=== PATIENT | female | born 1970 | race Caucasian/White ===

== ENCOUNTER → 2016-08-17 | Outpatient (CLI) | payer OTHER ==
[~2016-08-17] MED LIST: CARB1CAP8 PO; DICL50TA3 PO; DOCU-94 PO; GABA-113 PO; METH500T37 PO; MULT-506 PO; NAPR-1169 PO; NAPR500T3 PO; NORT25CA PO; OXYC-609 PO; POLY335019 PO; PROM25TA9 PO; RIZA10TA18 PO
--- NOTE | 2016-08-20 14:25 | MAMMOGRAPHY REPORT ---
BILATERAL DIGITAL SCREENING MAMMOGRAM TOMOSYNTHESIS WITH CAD: 08/17/2016 CLINICAL HISTORY: Routine screening. Patient has no complaints. TECHNIQUE: Breast tomosynthesis in addition to standard 2D mammography was performed. Current study was also evaluated with a Computer Aided Detection (CAD) system. COMPARISON: Comparison is made to exam dated: 08/10/2015 mammogram - [facility]. BREAST COMPOSITION: There are scattered areas of fibroglandular density in both breasts. FINDINGS: No suspicious masses, calcifications, or areas of architectural distortion are noted in e ither breast. There has been no significant interval change compared to prior exams. IMPRESSION: ACR BI-RADS CATEGORY 1: NEGATIVE There is no mammographic evidence of malignancy. A 1 year screening mammogram is recommended. The p atient will receive written notification of the results. Approximately 10% of breast cancers are not detected with mammography. A negative mammographic repor t should not delay biopsy if a clinically suggestive mass is present. Sparkle Monique M.D. ah/:08/17/2016 15:53:32 Straw Hat Brusher: Malena JAMISON(Shannon)(M), [facility] letter sent: Normal 1/2 BI-RADS Code: ACR BI-RADS Category 1: Negative
== END | disposition home or self-care (01) ==
LOC: C.MAMM 15:29
PROVIDERS: ATTEND Internal Medicine
DX: Z12.31 Encounter for screening mammogram for malignant neoplasm of breast (principal)

== ENCOUNTER → 2016-08-29 | Outpatient (CLI) | payer OTHER ==
--- NOTE | 2016-08-29 12:33 | DIAGNOSTIC IMAGING REPORT ---
LEFT HIP 2 VIEWS HISTORY: Left hip pain. COMPARISON: None. FINDINGS: No acute fracture or dislocation within the left hip. Mild soft tissue swelling along the lateral aspect of the left hip. Deformity within the left iliac wing is likely due to an old injury. No radiopaque foreign bodies. Cartilage spaces are maintained for age. IMPRESSION: No acute fracture or dislocation within the left hip. Mild lateral soft tissue swelling. Electronically signed by: Valentin Archibald M.D. 08/29/2016 12:32 PM Dictated Date/Time: 08/29/2016 12:31 PM
--- NOTE | 2016-08-29 12:43 | DIAGNOSTIC IMAGING REPORT ---
CERVICAL SPINE 3 VIEWS HISTORY: Right-sided neck pain. COMPARISON: None. FINDINGS: The cervical spine is visualized from C1 through the superior endplate of T1. There is no fracture. No subluxation. Anterior cervical discectomy and fusion from C5 through C7. The hardware appears intact. The vertebral bodies are fused. Mild disc space narrowing at C4-C5 and C7-T1. Straightening of the cervical spine. Prevertebral soft tissues and the atlantodens interval are intact. IMPRESSION: No fracture or subluxation within the cervical spine. Postoperative changes. Mild degenerative disc disease at C4-C5 and C7-T1. Electronically signed by: Valentin Archibald M.D. 08/29/2016 12:41 PM Dictated Date/Time: 08/29/2016 12:39 PM
== END | disposition home or self-care (01) ==
LOC: C.RAD 12:04
PROVIDERS: ATTEND Nurse Practitioner
DX: M43.6 Torticollis (principal); M25.552 Pain in left hip; M50.321 Other cervical disc degeneration at C4-C5 level; M50.33 Other cervical disc degeneration, cervicothoracic region

== ENCOUNTER 2016-11-11 11:57 | Emergency (ER) | payer OTHER ==
[~2016-11-11] VITALS: Ht 170.2 cm; Wt 75.1 kg
[~2016-11-11 11:57] MED LIST changes: -CARB1CAP8 PO; -DICL50TA3 PO; -GABA-113 PO; -METH500T37 PO; -NAPR500T3 PO; -OXYC-609 PO
[2016-11-11 11:59] VITALS: TEMP 36.8; Ht 170.2 cm; Wt 75.1 kg
[2016-11-11] MEDS ORDERED: KETOROLAC TROMETHAMINE 60 MG/2 ML VIAL IM STA (12:30)
[2016-11-11] MEDS ORDERED: SODIUM CHLORIDE 0.9% 1000ML 1,000 ML IV STA (12:42)
[2016-11-11] MEDS ORDERED: METOCLOPRAMIDE HCL INJ 5 MG/ML 2 ML VIAL IV STA (12:42)
--- NOTE | 2016-11-11 13:13 | DIAGNOSTIC IMAGING REPORT ---
HEAD WITHOUT CONTRAST (CT) CT DOSE: 537.48 mGy.cm HISTORY: Headache left side facial pain/headache TECHNIQUE: Multiaxial CT images of the head were performed without the use of intravenous contrast. A dose lowering technique was utilized adhering to the principles of ALARA. Comparison: 08/11/2015 Findings: The paranasal sinuses and mastoid air cells are clear. The calvarium and skull base are intact. The ventricles and sulci are within normal limits. There is no mass, hematoma, midline shift, or acute infarct. Impression: No acute intracranial abnormality. The above report was generated using voice recognition software. It may contain grammatical, syntax or spelling errors. Electronically signed by: Alex Murguia M.D. 11/11/2016 1:11 PM Dictated Date/Time: 11/11/2016 1:10 PM
--- NOTE | 2016-11-11 13:35 | EMERGENCY ROOM VISIT NOTE ---
ED Visit Note First contact with patient: 12:07 CHIEF COMPLAINT: Facial Pain/Headache HISTORY OF PRESENT ILLNESS: This 46-year-old female patient presented to the emergency department complaining of several month-long history of intermittent facial and head pain on the left side. The patient states pains have been lasting for a few minutes to a few hours multiple days during the week, with a few days off. Today, however, the patient states the pain significantly worsened. The patient did see her PCP last week and was started on a 5 day burst of prednisone to treat for possible migraine. The patient states the steroids did not help with her symptoms, and she awoke today experiencing even worsening pain. The patient describes a sensation like her eye and cheek are swollen, and reports pain radiating from behind the ear to the front of her ear. The patient describes the pain as swelling and burning. The patient rates the pain 9/10. The patient reports neck surgery approximately one year ago, where the patient had a cervical disc recreated with a piece of the pelvic bone. There has been no associated photophobia, phonophobia, nausea and vomiting. The patient denies fever or chills recently, and there is no weakness or numbness of the extremities. There is no difficulty with speech or vision. No trauma to the head and no neck pain. The pain is severe, constant, and it is slowly increasing in severity. The patient has taken Tylenol every 2-3. This is not the same as migraines patient has had in the past. She was seen here last year where an LP and brain MRI were performed with no abnormal findings. Previous imaging studies of the brain have been normal. REVIEW OF SYSTEMS: A 10-system review of systems was performed with positives and pertinent negatives listed in the history of present illness. All other systems were reviewed and are negative. ALLERGIES: Amoxicillin, penicillin MEDICATIONS: None PMH: Migraines, cervical disc disease SOCIAL HISTORY: She lives locally with her family. She denies drug, alcohol, tobacco use. PHYSICAL EXAM: Vital Signs: Reviewed Nurse's notes, vital signs stable. GENERAL : This is a 46-year-old female, who appears in pain, but non toxic in appearance and in no acute distress. MENTAL STATUS: Alert, oriented, and coherent. HEENT: Normocephalic. PERRLA. EOMI. Nares patent without nuchal rigidity. Tympanic membranes pearly cedeno without erythema or effusion bilaterally. Mucous membranes moist. NECK: Supple, no nuchal rigidity, nontender, no lymphadenopathy. HEART: Regular rhythm and normal rate without murmurs, ectopy, gallops, or rubs. LUNGS: Clear to auscultation bilaterally without wheezes, rales or rhonchi. No dullness to percussion. No accessory muscle use. No retractions. SKIN: The patient is tender to light palpation over the left side of the face. She does have full sensation to sharp and dull touch. No rashes, erythema, or edema noted. NEUROLOGICAL: Pupils are round, equal and react to light. The optic fundi are normal and the discs are flat. The patient moves all extremities well and the gait is normal. EMERGENCY DEPARTMENT COURSE: The patient was seen and evaluated as above. I did give the patient 60 mg Toradol IM, which she does state significantly helped with her pain. I discussed the case with Dr. Brown who recommends a head CT scan without contrast and treatment as a migraine with Reglan and fluids. I did order this test and started this treatment in the ED. The patient did report significant improvement in her symptoms prior to discharge. I discussed findings with the patient and her daughter at bedside, and they were in agreement with the assessment and plan. I did encourage close follow- up with neurology and orthopedic surgeon. I offered narcotic pain medication to the patient, and she declines. The patient was discharged home in good condition. DIFFERENTIAL DIAGNOSIS: Trigeminal neuralgia, cervical disc disease, acute intracranial bleed, meningitis, encephalitis, mass or mass effect, sinusitis, infection, tumor, headache, temporal arteritis and carbon monoxide exposure, and migraine. DIAGNOSIS: Facial Pain, Headache DISCHARGE INSTRUCTIONS & TREATMENT: DO NOT drive, drink alcohol, operate machinery, or perform dangerous activities today. Rest today in a quiet, peaceful, dark environment and get a full 8-10 hrs of sleep tonight. Avoid loud noises, smoke/smoking, alcohol, bright lights, stress, or physical exertion today to minimize the chance the headache may return. Continue current medications as prescribed. You may take Naproxen 500mg twice daily for pain and anti-inflammatory effects. Take this as prescribed. Do not take this medication with any other NSAIDs including Aleve, Advil, Motrin, ibuprofen. Acetaminophen(Tylenol) may be used for fever or pain. Use 1000mg every six to eight hours as needed. Avoid using more than 3000mg in a 24 hour period. You may consider Magnesium supplement, 400mg daily at bedtime, to help with headaches. Drink plenty of fluids. Avoid high sodium foods. Avoid processed foods. Return to the ER for passing out, worsening headache, vision problems, weakness , slurred speech, facial drooping, neck stiffness/pain, fevers, vomiting, worsening of your condition, or as needed. Follow up with your primary physician in 2-3 days for a recheck of your current condition. Please contact neurology in 1-2 days for further evaluation of your symptoms and consider follow-up with your orthopedic surgeon this week as well. Problem List Medical Problems: (1) Anxiety Status: Chronic (2) Back pain, acute Status: Resolved (3) Back pain, chronic Status: Chronic (4) Depression Status: Chronic (5) Esophageal Reflux Status: Chronic (6) Polycystic Ovaries Status: Chronic (7) Pyelonephritis Status: Resolved Surgical Problems: (1) History of hysterectomy Status: Resolved (2) Tubal Ligation Status Status: Resolved Current/Historical Medications Scheduled Naproxen (Naproxen), 1 TAB PO BID Allergies Coded Allergies: Amoxicillin (Verified Allergy, Unknown, ., 11/11/16) Penicillins (Verified Allergy, Unknown, 11/11/16) Vital Signs Date Time Temp Pulse Resp B/P (MAP) Pulse Ox O2 Delivery O2 Flow Rate FiO2 11/11/16 14:22 58 18 100/68 99 11/11/16 13:24 58 20 106/67 99 Room Air 11/11/16 11:59 36.8 82 20 122/83 96 Room Air Medications Administered Medications (Trade) Dose Ordered Sig/Connie Route Start Time Stop Time Status Last Admin Dose Admin Ketorolac Tromethamine (Toradol Inj) 60 mg NOW STAT IM 11/11/16 12:30 11/11/16 12:31 DC 11/11/16 12:37 60 MG Metoclopramide HCl (Reglan Inj) 10 mg NOW STAT IV 11/11/16 12:42 11/11/16 12:45 DC 11/11/16 13:22 10 MG Sodium Chloride 1,000 ml @ 999 mls/hr Q1H1M STAT IV 11/11/16 12:42 11/11/16 13:42 DC 11/11/16 13:23 999 MLS/HR Departure Information Impression Primary Impression: Facial pain Additional Impression: Headache Dispostion Home / Self-Care Condition GOOD Prescriptions Naproxen (NAPROXEN) 500 Mg Tab 1 TAB PO BID, #60 TAB 1 Refill Prov: Tiffany Oliva PA-C 11/11/16 Referrals Christiano Barker M.D. (PCP) Gray Cohen M.D. Patient Instructions Headache Pain, My [facility] Additional Instructions DO NOT drive, drink alcohol, operate machinery, or perform dangerous activities today. Rest today in a quiet, peaceful, dark environment and get a full 8-10 hrs of sleep tonight. Avoid loud noises, smoke/smoking, alcohol, bright lights, stress, or physical exertion today to minimize the chance the headache may return. Continue current medications as prescribed. You may take Naproxen 500mg twice daily for pain and anti-inflammatory effects. Take this as prescribed. Do not take this medication with any other NSAIDs including Aleve, Advil, Motrin, ibuprofen. Acetaminophen(Tylenol) may be used for fever or pain. Use 1000mg every six to eight hours as needed. Avoid using more than 3000mg in a 24 hour period. You may consider Magnesium supplement, 400mg daily at bedtime, to help with headaches. Drink plenty of fluids. Avoid high sodium foods. Avoid processed foods. Return to the ER for passing out, worsening headache, vision problems, weakness , slurred speech, facial drooping, neck stiffness/pain, fevers, vomiting, worsening of your condition, or as needed. Follow up with your primary physician in 2-3 days for a recheck of your current condition. Please contact neurology in 1-2 days for further evaluation of your symptoms and consider follow-up with your orthopedic surgeon this week as well. Problem Qualifiers Additional Impression: Headache Headache type: unspecified Headache chronicity pattern: acute headache Intractability: intractable Qualified Codes: R51 - Headache
[2016-11-11] MEDS ORDERED: NAPR500T3 PO (14:11)
[2016-11-11 14:22] VITALS: BP 100/68; PULSE 58; O2SAT 99
== END 2016-11-11 14:23 | disposition home or self-care (01) ==
LOC: C.EDB 11:58 → C.EDD 14:23
DX: R51 Headache (principal); F41.9 Anxiety disorder, unspecified; K21.9 Gastro-esophageal reflux disease without esophagitis; F32.9 Major depressive disorder, single episode, unspecified; E28.2 Polycystic ovarian syndrome; Z87.440 Personal history of urinary (tract) infections; Z98.51 Tubal ligation status; Z88.0 Allergy status to penicillin; Z88.1 Allergy status to other antibiotic agents

== ENCOUNTER 2017-02-03 08:50 | Emergency (ER) | payer BC, OTHER ==
[~2017-02-03] VITALS: Ht 170.2 cm; Wt 77.2 kg
[~2017-02-03 08:50] MED LIST changes: -DOCU-94 PO; -MULT-506 PO; -NAPR-1169 PO; +NAPR500T3 PO; -NORT25CA PO; -POLY335019 PO; -PROM25TA9 PO; -RIZA10TA18 PO
[2017-02-03 09:03] VITALS: TEMP 36.8; Ht 170.2 cm; Wt 77.2 kg
[2017-02-03] MEDS ORDERED: SODIUM CHLORIDE 0.9% 1000ML 1,000 ML IV STA (09:35)
[2017-02-03] MEDS ORDERED: KETOROLAC TROMETHAMINE 30 MG/ML VIAL IV STA (09:49)
[2017-02-03] MEDS ORDERED: DiphenhydrAMINE HCL 50 MG/ML VIAL IV STA (09:49)
[2017-02-03] MEDS ORDERED: METOCLOPRAMIDE HCL INJ 5 MG/ML 2 ML VIAL IV STA (09:49)
[2017-02-03] MEDS ORDERED: METH500T37 PO (09:57)
[2017-02-03] MEDS ORDERED: CARB1CAP8 PO (09:57)
[2017-02-03] MEDS ORDERED: GABA-113 PO (09:57)
[2017-02-03] MEDS ORDERED: DICL50TA3 PO (09:57)
[2017-02-03] MEDS ORDERED: OXYC-609 PO (09:57)
[2017-02-03] MEDS ORDERED: DEXAMETHASONE SOD INJ 10 MG/ML VIAL IV ONE (10:00)
[2017-02-03 10:04] LABS: BASO % 0.2 %; BASO ABS # 0.01 K/uL (0-0.2); COMPLETE YES; EOS % 1.8 %; HEMATOCRIT 41.9 % (37-47); IG% 0.5 %; LYMPH % 33.6 %; LYMPH ABS # 1.47 K/uL (1.2-3.4); MEAN CELL VOLUME 92.1 fL (80-100); MEAN CORPUSCULAR HEMOGLOBIN 31.2 pg (25-34); MEAN CORPUSCULAR HGB CONC 33.9 g/dl (32-36); MEAN PLATELET VOLUME 9.9 fL (7.4-10.4); NEUT % 55.9 %; PLATELET COUNT 172 K/uL (130-400); RED BLOOD COUNT 4.55 M/uL (4.2-5.4); WHITE BLOOD COUNT 4.37 K/uL (4.8-10.8)
[2017-02-03 10:25] LABS: BUN/CREATININE RATIO 20.5 (10-20); CALCIUM 8.8 mg/dl (8.5-10.1); CREATININE 0.63 mg/dl (0.60-1.20); POTASSIUM 3.9 mmol/L (3.5-5.1); PREG INTERNAL NEGATIVE QC NEG CLEAR BACKGROUND; PREG INTERNAL POSITIVE QC POS CONTROL LINE
[2017-02-03 11:36] VITALS: BP 110/63; PULSE 69; O2SAT 97
--- NOTE | 2017-02-03 17:03 | EMERGENCY ROOM VISIT NOTE ---
History Report prepared by Angus: Nomi Aguilera Under the Supervision of: Dr. Refugio Henry M.D. First contact with patient: 09:35 Chief Complaint: HEADACHE Stated Complaint: L FACIAL SWELLING, PAIN ON L SIDE OF FACE/HEAD/BOD History of Present Illness The patient is a 46 year old female who presents to the Emergency Room with complaints of a headache episode that started yesterday. She says that she gets these episodes at least once a week and they can last multiple days. She notes that she has had problems for about a year, right before getting surgery done for her neck. The patient states that her problems have included migraines, facial swelling, and left-sided facial pain and left-sided neck pain. She adds that parts of the left side of her head and face are tingling and numb. The patient notes that during her episodes, loud noises and bright lights worsen her symptoms. She says that today, her left side of her face is throbbing a lot , and she has a very bad headache. The patient notes that she is nauseated and vomited at work this morning, and that is why she decided to come in today. The patient states that she was last here a few months ago for her symptoms, and got some Toradol shots which made her feel better. She adds that her doctor has prescribed her some medications, including Soma, Carbamazepine, Neurontin, and Gabapentin. Pt denies LOC, fevers, chills, diaphoresis, chest pain, breathing difficulties, abdominal pain, back pain, melena, hematochezia, urinary symptoms , rash, or other complaints. Source of History: patient Onset: Yesterday Position: head Quality: other (migraine-like) Timing: other (episode) Modifying Factors (Worsening): other (light, loud noises) Associated Symptoms: + neck pain, + nausea, + vomiting, + numbness (left side of face and head) Note: Associated symptoms: Facial swelling, left facial throbbing. Left side of face and head tingling. Review of Systems See HPI for pertinent positives and negatives. A total of ten systems were reviewed and were otherwise negative. Past Medical & Surgical Medical Problems: (1) Anxiety (2) Back pain, acute (3) Back pain, chronic (4) Cervical disc disease (5) Depression (6) Esophageal Reflux (7) Polycystic Ovaries (8) Pyelonephritis Surgical Problems: (1) History of hysterectomy (2) Tubal Ligation Status Family History Cancer Diabetes mellitus Gallbladder disease Heart disease Hypertension Kidney disease Kidney stones Seizures Social History Smoking Status: Current Every Day Smoker Alcohol Use: occasionally Drug Use: none Marital Status: Occupation Status: employed Current/Historical Medications Scheduled Carbamazepine (Carbatrol Er), 200 MG PO DAILY Oxycodone HCl (Oxycodone HCl), 1 TAB PO UD Scheduled PRN Diclofenac (Voltaren), 50 MG PO Q8 PRN for Pain Gabapentin (Neurontin), 300 MG PO TID PRN for Pain Methocarbamol (Robaxin), 500-1,000 MG PO UD PRN for Headache Allergies Coded Allergies: Amoxicillin (Verified Allergy, Unknown, ., 02/03/17) Penicillins (Verified Allergy, Unknown, 02/03/17) Physical Exam Vital Signs Date Time Temp Pulse Resp B/P (MAP) Pulse Ox O2 Delivery O2 Flow Rate FiO2 02/03/17 11:36 69 16 110/63 97 02/03/17 10:53 59 16 96/54 98 Room Air 02/03/17 09:03 36.8 80 20 128/76 100 Room Air Physical Exam GENERAL: Awake, alert, uncomfortable appearing, no distress HENT: Normocephalic, atraumatic. TM's normal. Oropharynx unremarkable. EYES: PERRL. EOMI. Normal conjunctiva. Sclera non-icteric. NECK: Supple. No nuchal rigidity. FROM. No JVD or bruit. RESPIRATORY: CTA CARDIAC: RRR. No murmur. ABDOMEN: Soft, non distended. No tenderness to palpation. No rebound or guarding. No masses. RECTAL: Deferred. MUSCULOSKELETAL: Unremarkable. No edema. No discoloration. Gross motor strength symmetric. NEURO: Cranial nerves 2-12 grossly intact. Normal sensorium. Mild subjective decreased sensation left forehead. Speech normal. No pronator drift. Gait normal. SKIN: No rash or jaundice noted. LYMPH: No adenopathy. Medical Decision & Procedures Laboratory Results 02/03/17 09:44 Red Blood Count 4.55, Mean Corpuscular Volume 92.1, Mean Corpuscular Hemoglobin 31.2, Mean Corpuscular Hemoglobin Concent 33.9, Mean Platelet Volume 9.9, Neutrophils (%) (Auto) 55.9, Lymphocytes (%) (Auto) 33.6, Monocytes (%) (Auto) 8.0, Eosinophils (%) (Auto) 1.8, Basophils (%) (Auto) 0.2, Neutrophils # (Auto) 2.44, Lymphocytes # (Auto) 1.47, Monocytes # (Auto) 0.35, Eosinophils # (Auto) 0.08, Basophils # (Auto) 0.01 02/03/17 09:44 Test 02/03/17 09:44 White Blood Count 4.37 K/uL (4.8-10.8) Red Blood Count 4.55 M/uL (4.2-5.4) Hemoglobin 14.2 g/dL (12.0-16.0) Hematocrit 41.9 % (37-47) Mean Corpuscular Volume 92.1 fL (80-100) Mean Corpuscular Hemoglobin 31.2 pg (25-34) Mean Corpuscular Hemoglobin Concent 33.9 g/dl (32-36) Platelet Count 172 K/uL (130-400) Mean Platelet Volume 9.9 fL (7.4-10.4) Neutrophils (%) (Auto) 55.9 % Lymphocytes (%) (Auto) 33.6 % Monocytes (%) (Auto) 8.0 % Eosinophils (%) (Auto) 1.8 % Basophils (%) (Auto) 0.2 % Neutrophils # (Auto) 2.44 K/uL (1.4-6.5) Lymphocytes # (Auto) 1.47 K/uL (1.2-3.4) Monocytes # (Auto) 0.35 K/uL (0.11-0.59) Eosinophils # (Auto) 0.08 K/uL (0-0.5) Basophils # (Auto) 0.01 K/uL (0-0.2) RDW Standard Deviation 42.9 fL (36.4-46.3) RDW Coefficient of Variation 12.7 % (11.5-14.5) Immature Granulocyte % (Auto) 0.5 % Immature Granulocyte # (Auto) 0.02 K/uL (0.00-0.02) Anion Gap 5.0 mmol/L (3-11) Est Creatinine Clear Calc Drug Dose 120.8 ml/min Estimated GFR () 125.6 Estimated GFR (Non- 108.3 BUN/Creatinine Ratio 20.5 (10-20) Calcium Level 8.8 mg/dl (8.5-10.1) Human Chorionic Gonadotropin, Qual NEG (NEG) Laboratory results reviewed by me Medications Administered Medications (Trade) Dose Ordered Sig/Connie Route Start Time Stop Time Status Last Admin Dose Admin Sodium Chloride 1,000 ml @ 999 mls/hr Q1H1M STAT IV 02/03/17 09:35 02/03/17 10:35 DC 02/03/17 09:48 999 MLS/HR Metoclopramide HCl (Reglan Inj) 10 mg NOW STAT IV 02/03/17 09:49 02/03/17 09:51 DC 02/03/17 10:05 10 MG Diphenhydramine HCl (Benadryl Inj) 25 mg NOW STAT IV 02/03/17 09:49 02/03/17 09:51 DC 02/03/17 10:04 25 MG Ketorolac Tromethamine (Toradol Inj) 10 mg NOW STAT IV 02/03/17 09:49 02/03/17 09:51 DC 02/03/17 10:03 10 MG Dexamethasone Sodium Phosphate (Decadron Inj) 10 mg NOW ONCE IV 02/03/17 10:00 02/03/17 10:01 DC 02/03/17 10:00 10 MG ED Course 0935: Ordered NSS 1000 ml @ 999 mls/hr IV. 0947: The patient was evaluated in room B9. A complete history and physical exam was performed. 0949: Ordered Toradol Inj 10 mg IV, Benadryl Inj 25 mg IV, Reglan Inj 10 mg IV. 1000: Ordered Decadron Inj 10 mg IV. 1123: I reevaluated the patient and she is feeling better and well enough to go home. Discussed results and discharge instructions: she verbalized understanding and agreement. The patient is ready for discharge. Medical Decision Prior records/ancillary studies reviewed. Triage Nursing notes reviewed and agree them. The patient's history was concerning for headache. Differential diagnosis: Etiologies such as migraine headache, meningitis, sinusitis, CO exposure, ICH, SAH, infection, tumor, headache, sinus thrombosis, arterial dissection, as well as others were entertained. Physical examination findings: As above. Non-focal. Subjective feelings the left side of her face. ER treatment provided: Normal saline hydration Reglan IV Benadryl IV Toradol IV Decadron IV On reassessment the patient felt better. Diagnostics interpreted by me: The labs revealed an unremarkable CBC and chemistry panel. The patient is not . Imaging studies: Deferred Patient has a history of these left-sided headaches. He sound migrainous. She is on several medications by her primary, neurologist, and orthopedist. I did review these with her. She will need to follow-up closely in the office. She is getting these more frequently and may benefit from prophylactic treatment. After the above treatment the patient was feeling much better. She felt comfortable to go home and rest and if symptoms worsen or other problems develop she will come back to the Emergency Room. I gave my usual and customary discussion regarding this issue. By the evaluation outlined above emergent etiologies such as meningitis, sinusitis, CO exposure, ICH, SAH, infection, temporal arteritis, tumor, sinus thrombosis, arterial dissection, as well as others were deemed relatively unlikely. The patient was informed about the findings as listed above. All questions were answered and she was pleased with the treatment. Return instructions were outlined and the patient was discharged in stable condition. Outpatient prescription management: No change Referral: The patient was referred back to her primary care physician for follow-up in 2 to 3 days for a recheck of the current condition. The chart was completed utilizing [employer] Speech voice recognition software. Grammatical errors, random word insertions, pronoun errors, and incomplete sentences are an occasional consequence of this system due to software limitations, ambient noise, and hardware issues. Any formal questions or concerns about the content, text, or information contained within the body of this dictation should be directly addressed to the physician for clarification. Medication Reconcilliation Current Medication List: was personally reviewed by me Blood Pressure Screening Patient's blood pressure: Elevated blood pressure Blood pressure disposition: Elevated BP felt to be situational Impression Primary Impression: Headache Scribe Attestation The scribe's documentation has been prepared under my direction and personally reviewed by me in its entirety. I confirm that the note above accurately reflects all work, treatment, procedures, and medical decision making performed by me. Departure Information Dispostion Home / Self-Care Referrals Christiano Barker M.D. (PCP) Patient Instructions My [facility] Additional Instructions HEADACHE INSTRUCTIONS: DO NOT drive, drink alcohol, operate machinery, or perform dangerous activities today. You were given medications in the ER that can affect your ability to safely function or operate a vehicle. Rest today in a quiet, peaceful, dark environment and get a full 8-10 hrs of sleep tonight. Avoid loud noises, smoke/smoking, alcohol, bright lights, stress, or physical exertion today to minimize the chance the headache may return. Continue current medications, especially the Neurontin, methocarbamol and Voltaren. Acetaminophen(Tylenol) may be used for fever or pain. Use 1000mg every six hours as needed. Avoid using more than 4000mg in a 24 hour period. Return to the ER for passing out, worsening headache, vision problems, neck stiffness/pain, fevers, vomiting, worsening of your condition, or as needed. Follow up with your primary physician in 2-3 days for a recheck of your current condition.
== END 2017-02-03 11:34 | disposition home or self-care (01) ==
LOC: C.EDB 08:52
DX: R51 Headache (principal); F41.9 Anxiety disorder, unspecified; M54.9 Dorsalgia, unspecified; G89.29 Other chronic pain; F32.9 Major depressive disorder, single episode, unspecified; K21.9 Gastro-esophageal reflux disease without esophagitis; Z90.710 Acquired absence of both cervix and uterus; Z98.51 Tubal ligation status; Z80.9 Family history of malignant neoplasm, unspecified; Z83.3 Family history of diabetes mellitus; Z82.49 Family history of ischemic heart disease and other diseases of the circulatory system; Z84.1 Family history of disorders of kidney and ureter; Z82.0 Family history of epilepsy and other diseases of the nervous system; F17.210 Nicotine dependence, cigarettes, uncomplicated; Z79.899 Other long term (current) drug therapy

== ENCOUNTER → 2017-02-05 | Outpatient (CLI) | payer BC ==
[~2017-02-05] MED LIST changes: +CARB1CAP8 PO; +DICL50TA3 PO; +GABA-113 PO; +METH500T37 PO; +OXYC-609 PO
[2017-02-05 18:25] LABS: CHOLESTEROL/HDL RATIO 3.9; THYROID STIMULATING HORMONE 1.87 uIu/ml (0.300-4.500)
== END | disposition home or self-care (01) ==
LOC: C.LABBFT 14:45
PROVIDERS: ATTEND Internal Medicine
DX: G43.709 Chronic migraine without aura, not intractable, without status migrainosus (principal); Z13.6 Encounter for screening for cardiovascular disorders

== ENCOUNTER 2017-03-31 18:39 | Observation (INO) | payer BC ==
[~2017-03-31] VITALS: Ht 170.2 cm; Wt 77.6 kg
[~2017-03-31 18:39] MED LIST changes: -NAPR500T3 PO
[2017-03-31] MEDS ORDERED: ONDANSETRON INJ 2 MG/ML 2 ML VIAL IV STA (18:54)
[2017-03-31 19:20] LABS: BASO % 0.2 %; BASO ABS # 0.02 K/uL (0-0.2); COMPLETE YES; EOS % 0.8 %; HEMATOCRIT 41.1 % (37-47); IG% 0.2 %; MEAN CELL VOLUME 91.7 fL (80-100); MEAN CORPUSCULAR HEMOGLOBIN 31.7 pg (25-34); MEAN CORPUSCULAR HGB CONC 34.5 g/dl (32-36); MEAN PLATELET VOLUME 9.8 fL (7.4-10.4); MONO % 7.4 %; NEUT % 74.4 %; PLATELET COUNT 207 K/uL (130-400); RED BLOOD COUNT 4.48 M/uL (4.2-5.4); WHITE BLOOD COUNT 12.38 K/uL (4.8-10.8)
[2017-03-31 19:30] LABS: URINE APPEARANCE CLEAR (CLEAR); URINE BILIRUBIN NEG (NEG); URINE COLOR YELLOW; URINE NITRITE NEG (NEG); URINE PH 6.5 (4.5-7.5); URINE SPECIFIC GRAVITY 1.016 (1.000-1.030); UROBILINOGEN NEG (NEG); ZZUR CULT IF INDIC CLEAN CATCH NO
[2017-03-31 19:39] LABS: MANUAL MICROSCOPIC REQUIRED? NO; REVIEW REQ? NO
[2017-03-31 19:53] LABS: ALT/SGPT 19 U/L (12-78); BLOOD UREA NITROGEN 13 mg/dl (7-18); BUN/CREATININE RATIO 17.7 (10-20); CARBON DIOXIDE 26 mmol/L (21-32); CHLORIDE 106 mmol/L (98-107); CREATININE 0.71 mg/dl (0.60-1.20); GLUCOSE 83 mg/dl (70-99); POTASSIUM 3.8 mmol/L (3.5-5.1); SODIUM 140 mmol/L (136-145)
[2017-03-31 19:58] LABS: ALKALINE PHOSPHATASE 92 U/L (45-117); AST/SGOT 14 U/L (15-37)
--- NOTE | 2017-03-31 20:05 | DIAGNOSTIC IMAGING REPORT ---
GALLBLADDER-ABD LIMITED CLINICAL HISTORY: 46 years-old Female presenting with epigastric/RUQ pain. TECHNIQUE: Real-time grayscale and limited color Doppler ultrasound imaging of the abdomen limited to the right upper quadrant was performed. COMPARISON: 05/18/2014. FINDINGS: Pancreas: Visualized portions of the pancreatic head and body normal. Liver: Normal echogenicity and echotexture. The liver measures 15.5 cm in maximal sagittal dimension. Hyperechogenic lesion measuring 1.8 x 2.1 x 1.4 cm near the hepatic dome, indeterminate but possibly hemangioma. Main portal vein patent with normal directional flow. Biliary: No intrahepatic biliary ductal dilatation. Common bile duct measures up to 4 mm in diameter. Gallbladder: Gallbladder: Minimal gallbladder sludge suggested. No gallstones, gallbladder distention, gallbladder wall thickening, or pericholecystic fluid or inflammatory change. Sonographic Jacobson's sign negative. Right kidney: Normal in appearance. No hydronephrosis. Ascites: None. IMPRESSION: 1. Minimal gallbladder sludge. No cholelithiasis or biliary ductal dilatation. 2. The 2.1 cm hyperechogenic hepatic lesion is indeterminate but likely represents a benign hemangioma. Electronically signed by: Chris Jose M.D. 03/31/2017 8:04 PM Dictated Date/Time: 03/31/2017 8:02 PM
--- NOTE | 2017-03-31 20:07 | EMERGENCY ROOM VISIT NOTE ---
History First contact with patient: 18:45 Chief Complaint: NAUSEA Stated Complaint: STOMACH PAIN, NAUSEA Nursing Triage Summary: patient c/o mid/right upper abdominal pain that radiates down right lower abdomen since 1100 today. patient c/o nausea and vomit x1 History of Present Illness The patient is a 46 year old female who presents to the Emergency Room with complaints of abdominal pain. The patient reports that she has had abdominal pain for the past 7 hours. She reports the pain is in her upper abdomen in the middle into the right side. The pain is constant and is worse when she is sitting up or walking. She rates her discomfort a 7/10. She has been very nauseous and had one episode of vomiting. She denies any history of similar symptoms. She has had normal bowel movements this week. She denies any associated urinary symptoms, shortness of breath or fever. She does report an extensive family history of gallbladder disease. She denies any history of abdominal surgeries. Review of Systems A complete 10 point review of systems was reviewed with the patient with pertinent positives and negatives as per history of present illness. All else were negative. Past Medical/Surgical History Medical Problems: (1) Anxiety (2) Back pain, acute (3) Back pain, chronic (4) Cervical disc disease (5) Depression (6) Esophageal Reflux (7) Polycystic Ovaries (8) Pyelonephritis Surgical Problems: (1) History of hysterectomy (2) Tubal Ligation Status Family History Cancer Diabetes mellitus Gallbladder disease Heart disease Hypertension Kidney disease Kidney stones Seizures Social History Smoking Status: Former Smoker Alcohol Use: occasionally Drug Use: none Marital Status: Occupation Status: employed Current/Historical Medications Scheduled PRN Diclofenac (Voltaren), 50 MG PO Q8 PRN for Headache or Pain Gabapentin (Neurontin), 300 MG PO TID PRN for Pain Methocarbamol (Robaxin), 500-1,000 MG PO BID PRN for Headache or Headpressure Physical Exam Vital Signs Date Time Temp Pulse Resp B/P (MAP) Pulse Ox O2 Delivery O2 Flow Rate FiO2 03/31/17 22:18 86 16 139/77 99 03/31/17 21:07 81 16 122/80 100 Room Air 03/31/17 18:42 36.7 95 18 137/68 99 Room Air Physical Exam VITALS: Vitals are noted on the nurse's note and reviewed by myself. Vital signs stable. GENERAL: This is a 46-year-old female, in no acute distress, nondiaphoretic, well-developed well-nourished. SKIN: The skin was without rashes. MOUTH: Mucous membranes moist. HEART: Regular rate and rhythm without murmurs gallops or rubs. LUNGS: Clear to auscultation bilaterally without wheezes, rales or rhonchi. No retractions or accessory muscle use. ABDOMEN: Positive bowel sounds x 4. Soft, nondistended. There is tenderness to palpation in the epigastric region and right upper quadrant. No guarding or rebound tenderness. NEURO: Patient was alert and oriented to person place and time. Medical Decision & Procedures ER Provider Diagnostic Interpretation: GALLBLADDER-ABD LIMITED IMPRESSION: 1. Minimal gallbladder sludge. No cholelithiasis or biliary ductal dilatation. 2. The 2.1 cm hyperechogenic hepatic lesion is indeterminate but likely represents a benign hemangioma. ABD/PELVIS IV CONTRAST ONLY IMPRESSION: 1. Findings consistent with acute uncomplicated appendicitis. No jorge perforation or abscess. 2. Suspected benign hepatic hemangioma Laboratory Results 03/31/17 19:07 Red Blood Count 4.48, Mean Corpuscular Volume 91.7, Mean Corpuscular Hemoglobin 31.7, Mean Corpuscular Hemoglobin Concent 34.5, Mean Platelet Volume 9.8, Neutrophils (%) (Auto) 74.4, Lymphocytes (%) (Auto) 17.0, Monocytes (%) (Auto) 7.4, Eosinophils (%) (Auto) 0.8, Basophils (%) (Auto) 0.2, Neutrophils # (Auto) 9.22, Lymphocytes # (Auto) 2.10, Monocytes # (Auto) 0.91, Eosinophils # (Auto) 0.10, Basophils # (Auto) 0.02 03/31/17 19:07 Test 03/31/17 19:07 03/31/17 19:15 White Blood Count 12.38 K/uL (4.8-10.8) Red Blood Count 4.48 M/uL (4.2-5.4) Hemoglobin 14.2 g/dL (12.0-16.0) Hematocrit 41.1 % (37-47) Mean Corpuscular Volume 91.7 fL (80-100) Mean Corpuscular Hemoglobin 31.7 pg (25-34) Mean Corpuscular Hemoglobin Concent 34.5 g/dl (32-36) Platelet Count 207 K/uL (130-400) Mean Platelet Volume 9.8 fL (7.4-10.4) Neutrophils (%) (Auto) 74.4 % Lymphocytes (%) (Auto) 17.0 % Monocytes (%) (Auto) 7.4 % Eosinophils (%) (Auto) 0.8 % Basophils (%) (Auto) 0.2 % Neutrophils # (Auto) 9.22 K/uL (1.4-6.5) Lymphocytes # (Auto) 2.10 K/uL (1.2-3.4) Monocytes # (Auto) 0.91 K/uL (0.11-0.59) Eosinophils # (Auto) 0.10 K/uL (0-0.5) Basophils # (Auto) 0.02 K/uL (0-0.2) RDW Standard Deviation 42.2 fL (36.4-46.3) RDW Coefficient of Variation 12.5 % (11.5-14.5) Immature Granulocyte % (Auto) 0.2 % Immature Granulocyte # (Auto) 0.03 K/uL (0.00-0.02) Anion Gap 8.0 mmol/L (3-11) Est Creatinine Clear Calc Drug Dose 107.4 ml/min Estimated GFR () 119.2 Estimated GFR (Non- 102.9 BUN/Creatinine Ratio 17.7 (10-20) Calcium Level 9.0 mg/dl (8.5-10.1) Total Bilirubin 0.3 mg/dl (0.2-1) Direct Bilirubin < 0.1 mg/dl (0-0.2) Aspartate Amino Transf (AST/SGOT) 14 U/L (15-37) Alanine Aminotransferase (ALT/SGPT) 19 U/L (12-78) Alkaline Phosphatase 92 U/L (45-117) Troponin I < 0.015 ng/ml (0-0.045) Total Protein 7.6 gm/dl (6.4-8.2) Albumin 4.1 gm/dl (3.4-5.0) Lipase 145 U/L (73-393) Urine Color YELLOW Urine Appearance CLEAR (CLEAR) Urine pH 6.5 (4.5-7.5) Urine Specific [place] 1.016 (1.000-1.030) Urine Protein NEG (NEG) Urine Glucose (UA) NEG (NEG) Urine Ketones NEG (NEG) Urine Occult Blood NEG (NEG) Urine Nitrite NEG (NEG) Urine Bilirubin NEG (NEG) Urine Urobilinogen NEG (NEG) Urine Leukocyte Esterase NEG (NEG) Medications Administered Medications (Trade) Dose Ordered Sig/Connie Route Start Time Stop Time Status Last Admin Dose Admin Ondansetron HCl (Zofran Inj) 4 mg NOW STAT IV 03/31/17 18:54 03/31/17 18:56 DC 03/31/17 19:14 4 MG Heparin Sodium (Porcine) (Heparin Iv Bolus) 10,000 unit [employer],SLK-MED ONCE .ROUTE 03/31/17 22:17 03/31/17 22:18 DC 03/31/17 23:21 5,000 UNIT ED Course The patient was evaluated as above. Labs were drawn and IV access was obtained. Patient was medicated with 4 mg Zofran IV. Right upper quadrant ultrasound was performed and read by radiology as above. Patient was reevaluated and findings were discussed. CT of the abdomen was ordered. Case was discussed with Dr. Burch of general surgery. He will evaluate the patient for operative management. Medical Decision Differential diagnosis includes cholecystitis, gastroenteritis, bowel obstruction, colitis, diverticulitis, appendicitis, among others. The patient is a 46-year-old female who presents today complaining of right- sided abdominal pain. Labs revealed mild leukocytosis around 12,000 with no other concerning findings. Urinalysis was not suggestive of infection. LFTs within normal limits. Initially, presentation seems consistent with cholecystitis however ultrasound was negative. CT was then ordered and showed findings consistent with appendicitis. General surgery was consulted and will take the patient to the OR for operative management. Medication Reconcilliation Current Medication List: was personally reviewed by vt Blood Pressure Screening Patient's blood pressure: Normal blood pressure Impression Primary Impression: Acute appendicitis Departure Information Referrals Christiano Barker M.D. (PCP) Patient Instructions My [facility]
[2017-03-31] MEDS ORDERED: OPTIRAY 320 IV PRN (20:30)
--- NOTE | 2017-03-31 21:00 | DIAGNOSTIC IMAGING REPORT ---
ABD/PELVIS IV CONTRAST ONLY CLINICAL HISTORY: 46 years-old Female presenting with epigastric, RUQ pain. TECHNIQUE: Multidetector CT of the abdomen and pelvis was performed after the administration of intravenous contrast. IV contrast: 91 mL of Optiray 320. A dose lowering technique was used consistent with the principles of ALARA (as low as reasonably achievable). COMPARISON: Noncontrast CT from 05/18/2014. CT DOSE (mGy.cm): The estimated cumulative dose is 429.63 mGy.cm. 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 Lung bases: Lung bases clear. Normal heart size. No pericardial or pleural effusion. Liver: Normal morphology. Ill-defined 2 cm hypodense lesion in the medial left hepatic lobe suggestion of peripheral enhancement, indeterminate but possibly or hemangioma. No other lesion. Patent hepatic vasculature. Biliary: No intrahepatic or extrahepatic biliary ductal dilatation. Normal gallbladder. Pancreas: Normal. Spleen: Normal. Adrenal glands: Normal. Kidneys and ureters: Normal. No hydronephrosis. Bladder: Normal. Pelvic organs: Uterus surgically absent. Bowel: Mild stool burden throughout normal caliber colon. The appendix contains multiple phleboliths and is dilated measuring 8 mm in diameter. The appendix is fluid-filled with mild periappendiceal fat stranding ((series 3 image 319). No bowel obstruction. Peritoneal cavity: No free fluid or intraperitoneal gas. Lymph nodes: No enlarged lymph nodes in the abdomen or pelvis. Vasculature: Aorta and IVC patent and normal in caliber. Abdominal wall: Diastasis of the rectus abdominis. Musculoskeletal: Normal. IMPRESSION: 1. Findings consistent with acute uncomplicated appendicitis. No jorge perforation or abscess. 2. Suspected benign hepatic hemangioma Electronically signed by: Chris Jose M.D. 03/31/2017 8:59 PM Dictated Date/Time: 03/31/2017 8:47 PM
--- NOTE | 2017-03-31 22:05 | History and Physical ---
History & Physical Date & Time of Service: Mar 31, 2017 at 21:57 Chief Complaint: Stomach Pain, Nausea Primary Care Physician: Christiano Barker M.D. History of Present Illness Source: patient This is a 46-year-old female who presented to the emergency room with a complaint of abdominal pain. She states that she has had a dull ache on the right side of her abdomen for about 2 days. At about 11 AM today the pain became more sharp was more on the right side. She points to the area at the level of the umbilicus in the right lateral abdomen. There is extension inferiorly and superiorly. She's never had pain like this before and it is exacerbated by motion. She has a history of gallbladder symptoms but they're completely different than this. She's also had pyelonephritis but that's different as well. She is unsure as to whether or not she has had fever but she doesn't think so. She had nausea today and had 1 episode of vomiting without hematemesis. She has not had a change in her bowel habits. She does have a history of constipation for a long period of time but it's unchanged. There is no melena or hematochezia. She has not urinated as frequently as she normally does today but there is no dysuria or hematuria. Past Medical/Surgical History Medical Problems: (1) Anxiety Status: Chronic (2) Back pain, acute Status: Resolved (3) Back pain, chronic Status: Chronic (4) Depression Status: Chronic (5) Esophageal Reflux Status: Chronic (6) Polycystic Ovaries Status: Chronic (7) Pyelonephritis Status: Resolved Surgical Problems: (1) History of hysterectomy Status: Resolved (2) Tubal Ligation Status Status: Resolved (#) Cervical spine surgery with fusion, anterior approach, Family History Cancer Diabetes mellitus Gallbladder disease Heart disease Hypertension Kidney disease Kidney stones Seizures Social History Smoking Status: Current Some Day Smoker Smokeless Tobacco Use: No Alcohol Use: none Drug Use: none Marital Status: Housing status: lives with family, other Occupational Status: employed Multi-Drug Resistant Organisms History of MDRO: No Allergies Coded Allergies: Amoxicillin (Verified Allergy, Unknown, ., 02/03/17) Penicillins (Verified Allergy, Unknown, 02/03/17) Home Medications Scheduled PRN Diclofenac (Voltaren), 50 MG PO Q8 PRN for Headache or Pain Gabapentin (Neurontin), 300 MG PO TID PRN for Pain Methocarbamol (Robaxin), 500-1,000 MG PO BID PRN for Headache or Headpressure Review of Systems Constitutional: No fever Respiratory: No cough, No sputum Cardiovascular: No chest pain Abdomen: + problem reported (as per HPI) Genitourinary - Female: + problem reported (as per HPI) Endocrine: No fatigue Integumentary: No rash Physical Exam Vital Signs Date Time Temp Pulse Resp B/P (MAP) Pulse Ox O2 Delivery O2 Flow Rate FiO2 03/31/17 21:07 81 16 122/80 100 Room Air 03/31/17 18:42 36.7 95 18 137/68 99 Room Air General Appearance: WD/WN, no apparent distress Neck: supple, no adenopathy Respiratory/Chest: chest non-tender, lungs clear Cardiovascular: regular rate, rhythm Abdomen/GI: normal bowel sounds, soft, + tenderness (along lateral aspect of righ tmidabdomen and lower abdomen) Back: normal inspection Extremities/Musculoskelatal: normal inspection, no pedal edema Skin: normal color Diagnostics Laboratory Results Results Past 24 Hours Test 03/31/17 19:07 03/31/17 19:15 Range/Units White Blood Count 12.38 4.8-10.8 K/uL Red Blood Count 4.48 4.2-5.4 M/uL Hemoglobin 14.2 12.0-16.0 g/dL Hematocrit 41.1 37-47 % Mean Corpuscular Volume 91.7 80-100 fL Mean Corpuscular Hemoglobin 31.7 25-34 pg Mean Corpuscular Hemoglobin Concent 34.5 32-36 g/dl Platelet Count 207 130-400 K/uL Mean Platelet Volume 9.8 7.4-10.4 fL Neutrophils (%) (Auto) 74.4 % Lymphocytes (%) (Auto) 17.0 % Monocytes (%) (Auto) 7.4 % Eosinophils (%) (Auto) 0.8 % Basophils (%) (Auto) 0.2 % Neutrophils # (Auto) 9.22 1.4-6.5 K/uL Lymphocytes # (Auto) 2.10 1.2-3.4 K/uL Monocytes # (Auto) 0.91 0.11-0.59 K/uL Eosinophils # (Auto) 0.10 0-0.5 K/uL Basophils # (Auto) 0.02 0-0.2 K/uL RDW Standard Deviation 42.2 36.4-46.3 fL RDW Coefficient of Variation 12.5 11.5-14.5 % Immature Granulocyte % (Auto) 0.2 % Immature Granulocyte # (Auto) 0.03 0.00-0.02 K/uL Sodium Level 140 136-145 mmol/L Potassium Level 3.8 3.5-5.1 mmol/L Chloride Level 106 98-107 mmol/L Carbon Dioxide Level 26 21-32 mmol/L Anion Gap 8.0 3-11 mmol/L Blood Urea Nitrogen 13 7-18 mg/dl Creatinine 0.71 0.60-1.20 mg/dl Est Creatinine Clear Calc Drug Dose 107.4 ml/min Estimated GFR () 119.2 Estimated GFR (Non- 102.9 BUN/Creatinine Ratio 17.7 10-20 Random Glucose 83 70-99 mg/dl Calcium Level 9.0 8.5-10.1 mg/dl Total Bilirubin 0.3 0.2-1 mg/dl Direct Bilirubin < 0.1 0-0.2 mg/dl Aspartate Amino Transf (AST/SGOT) 14 15-37 U/L Alanine Aminotransferase (ALT/SGPT) 19 12-78 U/L Alkaline Phosphatase 92 45-117 U/L Troponin I < 0.015 0-0.045 ng/ml Total Protein 7.6 6.4-8.2 gm/dl Albumin 4.1 3.4-5.0 gm/dl Lipase 145 73-393 U/L Urine Color YELLOW Urine Appearance CLEAR CLEAR Urine pH 6.5 4.5-7.5 Urine Specific [place] 1.016 1.000-1.030 Urine Protein NEG NEG Urine Glucose (UA) NEG NEG Urine Ketones NEG NEG Urine Occult Blood NEG NEG Urine Nitrite NEG NEG Urine Bilirubin NEG NEG Urine Urobilinogen NEG NEG Urine Leukocyte Esterase NEG NEG Diagnostic Radiology I reviewed the reports and images. GALLBLADDER-ABD LIMITED CLINICAL HISTORY: 46 years-old Female presenting with epigastric/RUQ pain. TECHNIQUE: Real-time grayscale and limited color Doppler ultrasound imaging of the abdomen limited to the right upper quadrant was performed. COMPARISON: 05/18/2014. FINDINGS: Pancreas: Visualized portions of the pancreatic head and body normal. Liver: Normal echogenicity and echotexture. The liver measures 15.5 cm in maximal sagittal dimension. Hyperechogenic lesion measuring 1.8 x 2.1 x 1.4 cm near the hepatic dome, indeterminate but possibly hemangioma. Main portal vein patent with normal directional flow. Biliary: No intrahepatic biliary ductal dilatation. Common bile duct measures up to 4 mm in diameter. Gallbladder: Gallbladder: Minimal gallbladder sludge suggested. No gallstones, gallbladder distention, gallbladder wall thickening, or pericholecystic fluid or inflammatory change. Sonographic Jacobson's sign negative. Right kidney: Normal in appearance. No hydronephrosis. Ascites: None. IMPRESSION: 1. Minimal gallbladder sludge. No cholelithiasis or biliary ductal dilatation. 2. The 2.1 cm hyperechogenic hepatic lesion is indeterminate but likely represents a benign hemangioma. ABD/PELVIS IV CONTRAST ONLY CLINICAL HISTORY: 46 years-old Female presenting with epigastric, RUQ pain. TECHNIQUE: Multidetector CT of the abdomen and pelvis was performed after the administration of intravenous contrast. IV contrast: 91 mL of Optiray 320. A dose lowering technique was used consistent with the principles of ALARA (as low as reasonably achievable). COMPARISON: Noncontrast CT from 05/18/2014. CT DOSE (mGy.cm): The estimated cumulative dose is 429.63 mGy.cm. 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 Lung bases: Lung bases clear. Normal heart size. No pericardial or pleural effusion. Liver: Normal morphology. Ill-defined 2 cm hypodense lesion in the medial left hepatic lobe suggestion of peripheral enhancement, indeterminate but possibly or hemangioma. No other lesion. Patent hepatic vasculature. Biliary: No intrahepatic or extrahepatic biliary ductal dilatation. Normal gallbladder. Pancreas: Normal. Spleen: Normal. Adrenal glands: Normal. Kidneys and ureters: Normal. No hydronephrosis. Bladder: Normal. Pelvic organs: Uterus surgically absent. Bowel: Mild stool burden throughout normal caliber colon. The appendix contains multiple phleboliths and is dilated measuring 8 mm in diameter. The appendix is fluid-filled with mild periappendiceal fat stranding ((series 3 image 319). No bowel obstruction. Peritoneal cavity: No free fluid or intraperitoneal gas. Lymph nodes: No enlarged lymph nodes in the abdomen or pelvis. Vasculature: Aorta and IVC patent and normal in caliber. Abdominal wall: Diastasis of the rectus abdominis. Musculoskeletal: Normal. IMPRESSION: 1. Findings consistent with acute uncomplicated appendicitis. No jorge perforation or abscess. 2. Suspected benign hepatic hemangioma Impression Assessment and Plan This patient's history, physical findings, laboratories and CT findings are consistent with appendicitis. I have recommended a laparoscopic appendectomy. I explained the possible need to convert to an open procedure. I explained the possible complications associated with those procedures. The patient wishes to go ahead with surgery and has signed a consent form.
[2017-03-31] MEDS ORDERED: LIDOCAINE HCL 2% 2 ML VIAL (20MG/ML) ONE (22:13)
[2017-03-31] MEDS ORDERED: FENTANYL CITRATE INJ 50 MCG/1 ML 2 ML VIAL ONE ×2 (22:13→23:10)
[2017-03-31] MEDS ORDERED: PROPOFOL IV EMULSION 10 MG/ML 20 ML VIAL IV ONE (22:13)
[2017-03-31] MEDS ORDERED: BUPIVACAINE 0.5 % 5 MG/1 ML MPF 30ML VIAL ONE (22:17)
[2017-03-31] MEDS ORDERED: HEPARIN SOD (PORCINE) 1000 UNIT/ML 10 ML VIAL ONE (22:17)
[2017-03-31] MEDS ORDERED: CEFAZOLIN SOD 1 GM VIAL ONE (22:17)
[2017-03-31] MEDS ORDERED: ONDANSETRON INJ 2 MG/ML 2 ML VIAL IV PRN (22:30)
[2017-03-31] MEDS ORDERED: EpHEDrine SULFATE INJ 50 MG/ML AMP IV PRN (22:30)
[2017-03-31] MEDS ORDERED: ATROPINE SULFATE 0.1 MG/ML 5ML SYR IV PRN (22:30)
[2017-03-31] MEDS ORDERED: MoRPHine SULFATE 10 MG/ML CARP/VIAL IV PRN (22:30)
[2017-03-31] MEDS ORDERED: FENTANYL CITRATE INJ 50 MCG/1 ML 2 ML VIAL IV PRN (22:30)
[2017-03-31] MEDS ORDERED: CLINDAMYCIN PHOS 150 MG/ML 2 ML VIAL ONE (22:52)
[2017-03-31] MEDS ORDERED: ONDANSETRON INJ 2 MG/ML 2 ML VIAL ONE (23:11)
[2017-03-31] MEDS ORDERED: SUCCINYLCHOLINE CHLORIDE 20 MG/ML 10 ML VIAL IV ONE (23:11)
[2017-03-31] MEDS ORDERED: DEXAMETHASONE SOD INJ 4 MG/ML VIAL ONE (23:11)
[2017-04-01] VITALS (9 sets, daily range): BP systolic 94–132; BP diastolic 58–83; PULSE 63–96; TEMP 36.7–37.5; O2SAT 97–98; Ht 170.2 cm; Wt 77.6 kg
--- NOTE | 2017-04-01 00:06 | [facility] Post Operative Brief Note ---
Immediate Operative Summary Operative Date Apr 01, 2017. Pre-Operative Diagnosis Acute appendicitis Post-Operative Diagnosis same Procedure(s) Performed Laparoscopic appendectomy Surgeon Dr Burch Critical Care Educator Surgeon(s) None Estimated Blood Loss 5 cc Findings See dictation Specimens A. appendix Drains None Anesthesia General Complication(s) None Disposition Recovery Room / PACU
--- NOTE | 2017-04-01 00:13 | Anesthesiology Progress Note ---
Anesthesia Post Op Note Date & Time Apr 01, 2017 at 00:13 Vital Signs Vital Signs Past 12 Hours Date Time Temp Pulse Resp B/P (MAP) Pulse Ox O2 Delivery O2 Flow Rate FiO2 03/31/17 22:18 86 16 139/77 99 03/31/17 21:07 81 16 122/80 100 Room Air 03/31/17 18:42 36.7 95 18 137/68 99 Room Air Notes Mental Status: alert / awake / arousable, participated in evaluation Pt Amnestic to Procedure: Yes Nausea / Vomiting: adequately controlled Pain: adequately controlled Airway Patency, RR, SpO2: stable & adequate BP & HR: stable & adequate Hydration State: stable & adequate Anesthetic Complications: no major complications apparent
[2017-04-01] MEDS ORDERED: ONDANSETRON INJ 2 MG/ML 2 ML VIAL IV PRN (00:15)
[2017-04-01] MEDS ORDERED: MoRPHine SULFATE 4 MG/ML 1 ML CARP\\VIAL IV PRN (00:15)
[2017-04-01] MEDS ORDERED: IV FLUIDS COMPLETED PRN (00:45)
--- NOTE | 2017-04-01 00:50 | OPERATIVE REPORT ---
DATE OF OPERATION: 04/01/2017 PREOPERATIVE DIAGNOSIS: Appendicitis. POSTOPERATIVE DIAGNOSIS: Same. PROCEDURE: Laparoscopic appendectomy. SURGEON: Alex Burch MD FINDINGS: The distal 2/3 of the appendix was edematous, firm, hyperemic and there were areas that appeared gangrenous. The proximal third of the appendix and the appendix at the base was normal. There was no evidence of perforation or abscess. The visible bowel appeared normal. The cecum at the base of the appendix was normal. TECHNIQUE: The patient was given a general anesthetic and the area was prepped and draped in the usual sterile fashion. Transverse incision was made below the umbilicus, carried down through the subcutaneous tissue to the fascia which was grasped with 2 Italo clamps and incised between. The peritoneum was identified, incised, and the introducer was placed bluntly. The lower midline introducer was placed under direct vision through small skin incision. The appendix was identified. The left lower quadrant introducer was placed under direct vision. The appendix was extending off the inferior aspect of the cecum and directed inferiorly with the tip entering over the pelvic brim. I was able to mobilize it off the posterior wall with ease. I elevated it. There were some attachments laterally of the cecum and the appendix. They were taken down using blunt dissection. That allowed me to mobilize the appendix more medially as well as the distal portion of the cecum. I was then able to elevate it anteriorly and divide some attachments of the small bowel, exposing the mesoappendix. I was then able to establish a plane between the base of the appendix and the mesoappendix with ease. The mesoappendix was divided using the Endo-DAVID stapler. There was 1 arterial structure that remain, that was clipped and divided. I then was able to divide few millimeters of flimsy attachments on the lateral side of the appendix allowing me to confirm that I was at the base. The appendix was then amputated using the Endo-DAVID stapler. The appendix was placed into an Endobag and brought out through the left lower quadrant introducer site. That introducer was replaced and the right lower quadrant was irrigated and irrigation was removed. The staple lines were inspected. There was no bleeding. The right upper quadrant was inspected. There was no irrigation there. The pelvis was then inspected. Any irrigation that entered the pelvis was removed. The staple lines were again inspected and there was no bleeding. The gas was allowed to escape and the introducers were removed. The fascia of the umbilical and left lower quadrant introducer sites was closed with interrupted 0 Vicryl and the skin of all the incisions was closed with 4-0 Monocryl in either an interrupted or running subcuticular fashion. The skin was anesthetized with 0.5% Marcaine. The skin was cleansed, dried, benzoin placed. Steri-Strips applied. The estimated blood loss was 5 mL. Sponge, needle and instrument counts were correct prior to closure. The patient tolerated the surgical procedure without complication and was transferred to recovery. I attest to the content of the Intraoperative Record and any orders documented therein. Any exception s are noted below.
[2017-04-01] MEDS: OXYCODONE/ACETAMINOPHEN 5-325 TAB PO PRN ×2 (01:13→16:21)
[2017-04-01] MEDS: D5W AND 1/2NSS + 20MEQ KCL 1,000 ML IV SCH ×2 (01:35→11:19)
--- NOTE | 2017-04-01 14:31 | Surgery Progress Note ---
Surgery Progress Note Date of Service Apr 01, 2017. Subjective Post OP Day: 0 + feeling well, + diet (tolerated regular diet), No nausea, No vomiting Mild pain, mostly incisional Objective Vital Signs: Date Time Temp Pulse Resp B/P (MAP) Pulse Ox O2 Delivery O2 Flow Rate FiO2 04/01/17 12:10 37.0 63 16 100/66 (77) 98 Room Air 04/01/17 07:58 Room Air 04/01/17 07:33 36.8 63 16 104/70 (81) 97 Room Air 04/01/17 04:31 36.9 78 16 94/58 (70) 98 Room Air 04/01/17 02:50 37.2 96 16 98/63 (75) 98 Room Air 04/01/17 01:51 37.2 86 16 111/73 (86) 98 Room Air 04/01/17 01:19 37.0 93 16 125/80 (95) 98 Room Air 04/01/17 00:50 98 Room Air 04/01/17 00:50 37.5 88 16 132/83 (99) 98 Room Air 04/01/17 00:50 37.5 88 16 132/83 98 Room Air 04/01/17 00:50 Room Air 04/01/17 00:35 90 16 125/67 98 Room Air 04/01/17 00:25 95 16 130/80 99 Room Air 04/01/17 00:15 101 19 141/76 97 Room Air 04/01/17 00:05 37 110 18 135/88 97 Room Air 03/31/17 22:18 86 16 139/77 99 03/31/17 21:07 81 16 122/80 100 Room Air 03/31/17 18:42 36.7 95 18 137/68 99 Room Air Abdomen: normal bowel sounds, non distended Incision(s): clean, dry, intact, no erythema, no drainage Laboratory Results: Results Past 24 Hours Test 03/31/17 19:07 03/31/17 19:15 Range/Units White Blood Count 12.38 4.8-10.8 K/uL Red Blood Count 4.48 4.2-5.4 M/uL Hemoglobin 14.2 12.0-16.0 g/dL Hematocrit 41.1 37-47 % Mean Corpuscular Volume 91.7 80-100 fL Mean Corpuscular Hemoglobin 31.7 25-34 pg Mean Corpuscular Hemoglobin Concent 34.5 32-36 g/dl Platelet Count 207 130-400 K/uL Mean Platelet Volume 9.8 7.4-10.4 fL Neutrophils (%) (Auto) 74.4 % Lymphocytes (%) (Auto) 17.0 % Monocytes (%) (Auto) 7.4 % Eosinophils (%) (Auto) 0.8 % Basophils (%) (Auto) 0.2 % Neutrophils # (Auto) 9.22 1.4-6.5 K/uL Lymphocytes # (Auto) 2.10 1.2-3.4 K/uL Monocytes # (Auto) 0.91 0.11-0.59 K/uL Eosinophils # (Auto) 0.10 0-0.5 K/uL Basophils # (Auto) 0.02 0-0.2 K/uL RDW Standard Deviation 42.2 36.4-46.3 fL RDW Coefficient of Variation 12.5 11.5-14.5 % Immature Granulocyte % (Auto) 0.2 % Immature Granulocyte # (Auto) 0.03 0.00-0.02 K/uL Sodium Level 140 136-145 mmol/L Potassium Level 3.8 3.5-5.1 mmol/L Chloride Level 106 98-107 mmol/L Carbon Dioxide Level 26 21-32 mmol/L Anion Gap 8.0 3-11 mmol/L Blood Urea Nitrogen 13 7-18 mg/dl Creatinine 0.71 0.60-1.20 mg/dl Est Creatinine Clear Calc Drug Dose 107.4 ml/min Estimated GFR () 119.2 Estimated GFR (Non- 102.9 BUN/Creatinine Ratio 17.7 10-20 Random Glucose 83 70-99 mg/dl Calcium Level 9.0 8.5-10.1 mg/dl Total Bilirubin 0.3 0.2-1 mg/dl Direct Bilirubin < 0.1 0-0.2 mg/dl Aspartate Amino Transf (AST/SGOT) 14 15-37 U/L Alanine Aminotransferase (ALT/SGPT) 19 12-78 U/L Alkaline Phosphatase 92 45-117 U/L Troponin I < 0.015 0-0.045 ng/ml Total Protein 7.6 6.4-8.2 gm/dl Albumin 4.1 3.4-5.0 gm/dl Lipase 145 73-393 U/L Urine Color YELLOW Urine Appearance CLEAR CLEAR Urine pH 6.5 4.5-7.5 Urine Specific [place] 1.016 1.000-1.030 Urine Protein NEG NEG Urine Glucose (UA) NEG NEG Urine Ketones NEG NEG Urine Occult Blood NEG NEG Urine Nitrite NEG NEG Urine Bilirubin NEG NEG Urine Urobilinogen NEG NEG Urine Leukocyte Esterase NEG NEG Assessment & Plan S/P appendectomy Doing well Can D/C to home Instructions discussed
--- NOTE | 2017-04-01 14:34 | Discharge Instructions ---
Discharge Instructions Date of Service Apr 01, 2017. Admission Reason for Admission: Acute Appendicitis Discharge Discharge Diagnosis / Problem: Same Discharge Goals Goal(s): Decrease discomfort Activity Recommendations Activity Limitations: per Instructions/Follow-up section Lifting Limitations: no more than 10 pounds (for at least 2 weeks) Shower/Bathe: tomorrow (shower only) . Instructions / Follow-Up Instructions / Follow-Up Post-Surgical ~ Discharge Instructions Activity Recommendations: - lifting limitation: (10 pounds for 2 weeks), - exercise/sex/sports limit: (nonstrenuous for 2 weeks), - driving or machine use limit: (none for 1 week), - Shower/bathe limit: (may shower beginning tomorrow) Diet: - Resume previous diet SPECIAL CARE INSTRUCTIONS: - May shower in 24 hours. Let water run over area and pat dry. - Leave steri strips on for one week. - Call the surgeon's office with any questions or concerns - - (ex. temperature higher than 101 degrees F, excessive bleeding or pain). MEDICATIONS: - Resume previous medications unless instructed otherwise by your surgeon. - Ibuprofen 600 mg every 6 hours with food - Percocet 1 every 4 hours, as needed for pain FOLLOW UP VISIT: - If not already scheduled, please call the office to schedule a two week follow-up appointment. Office number Current Hospital Diet Patient's current hospital diet: Regular Diet Discharge Diet Recommended Diet: Regular Diet Procedures Procedures Performed: Laparoscopic appendectomy Pending Studies Studies pending at discharge: yes List of pending studies: Pathology Laboratory Results Lipid Panel Test 02/05/17 14:47 Range/Units Triglycerides Level 228 H 0-150 mg/dl Cholesterol Level 206 H 0-200 mg/dl HDL Cholesterol 53 mg/dl Cholesterol/HDL Ratio 3.9 LDL Cholesterol, Calculated 107 mg/dl Medical Emergencies . Who to Call and When: Medical Emergencies: If at any time you feel your situation is an emergency, please call 911 immediately. . Non-Emergent Contact Non-Emergency issues call your: Primary Care Provider, Surgeon Call Non-Emergent contact if: your pain is worsening, wound has increased redness, wound has increased pain . "Provider Documentation" section prepared by Alex Burch. . VTE Core Measure Inpt VTE Proph given/why not?: Treatment not indicated
--- NOTE | 2017-04-01 20:24 | DISCHARGE SUMMARY ---
PRINCIPAL DIAGNOSIS: Acute appendicitis. SECONDARY DIAGNOSES: None. PRINCIPAL PROCEDURE: Laparoscopic appendectomy. SECONDARY PROCEDURES: None. HISTORY AND PHYSICAL: As per H&P on chart without additions or deletions. Briefly, this is a 46-year-old female who presented to the Emergency Room with abdominal pain that was initially generalized and localized to the right lower quadrant. It was associated with nausea and had one episode of vomiting. There was no change in her bowel habits. Physical exam of pertinence revealed her abdomen with normoactive bowel sounds, it was soft but with tenderness along the lateral aspect of the right mid abdomen and lower abdomen. White blood cell count was 12.38. CT scan of the abdomen and pelvis showed an appendix containing multiple "phleboliths " and was dilated measuring 8 mm. It was fluid filled with mild periappendiceal fat stranding. HOSPITAL COURSE: She was felt to have appendicitis. She was taken to the operating room where a laparoscopic appendectomy was performed and grossly confirmed the diagnosis of appendicitis. The base of the appendix was normal. The procedure was performed without complication and with a 5 mL blood loss. The patient's postoperative course was unremarkable. She was taking a regular diet by the early afternoon. She had been ambulating. Her discomfort was easily controlled and was mild. There was no evidence of acute peritonitis on exam. She was discharged to home in stable condition. Discharge instructions were discussed with her. She was to continue with her medications currently at home as needed. She was also given Percocet and recommended ibuprofen in between.
== END 2017-04-01 17:25 | disposition home or self-care (01) ==
LOC: C.EDB 18:40 → C.MSN 04-01 00:10 → ENRESERV 04-01 00:47
PROVIDERS: ADMIT Surgery; ATTEND Surgery
DX: K35.80 Unspecified acute appendicitis (principal); F41.9 Anxiety disorder, unspecified; F32.9 Major depressive disorder, single episode, unspecified; K21.9 Gastro-esophageal reflux disease without esophagitis; E66.9 Obesity, unspecified; Z82.49 Family history of ischemic heart disease and other diseases of the circulatory system; Z84.1 Family history of disorders of kidney and ureter; Z82.0 Family history of epilepsy and other diseases of the nervous system; Z87.891 Personal history of nicotine dependence; Z87.442 Personal history of urinary calculi; Z85.41 Personal history of malignant neoplasm of cervix uteri; Z90.710 Acquired absence of both cervix and uterus; Z83.3 Family history of diabetes mellitus

== ENCOUNTER → 2017-04-18 | Outpatient (CLI) | payer BC ==
[~2017-04-18] MED LIST changes: -CARB1CAP8 PO; -OXYC-609 PO
[2017-04-18 17:42] LABS: BASO % 0.5 %; BASO ABS # 0.03 K/uL (0-0.2); EOS % 1.1 %; EOS ABS # 0.07 K/uL (0-0.5); HEMATOCRIT 42.1 % (37-47); HEMOGLOBIN 14.1 g/dL (12.0-16.0); IG# 0.01 K/uL (0.00-0.02); LYMPH % 30.7 %; LYMPH ABS # 1.94 K/uL (1.2-3.4); MEAN CELL VOLUME 91.7 fL (80-100); MEAN CORPUSCULAR HEMOGLOBIN 30.7 pg (25-34); MEAN CORPUSCULAR HGB CONC 33.5 g/dl (32-36); MEAN PLATELET VOLUME 9.5 fL (7.4-10.4); MONO % 7.4 %; MONO ABS # 0.47 K/uL (0.11-0.59); NEUT % 60.1 %; PLATELET COUNT 216 K/uL (130-400); RED CELL DISTRIBUTION WIDTH CV 12.3 % (11.5-14.5); RED CELL DISTRIBUTION WIDTH SD 41.6 fL (36.4-46.3); WHITE BLOOD COUNT 6.32 K/uL (4.8-10.8)
--- NOTE | 2017-04-18 18:02 | DIAGNOSTIC IMAGING REPORT ---
ABDOMEN COMPLETE (US) CLINICAL HISTORY: R10.811 Abdominal right upper quadrant tenderness COMPARISON STUDY: 03/31/2017 FINDINGS: The pancreas appears sonographically normal. The gallbladder appears sonographically normal. There is no ductal dilatation. The common bile duct measures 5 mm There is no evidence of abdominal aortic dilatation. The spleen measures 9.2 cm in length. No splenic masses are visualized. The right kidney measures 10.1 cm in length. The left kidney measures 11.1 cm in length. There is no significant hydronephrosis. There is a 2 cm echogenic focus within left lobe of the liver, near the dome. This remains unchanged in size to the prior study. The lesion is consistent with although not specific for a hepatic hemangioma. IMPRESSION: 1. Stable 2 cm hyperechoic lesion within the left lobe of the liver, likely representing a hepatic hemangioma 2. Ultrasonographically normal gallbladder and pancreas 3. No evidence of ductal dilatation. Electronically signed by: Donn Sosa M.D. 04/18/2017 6:01 PM Dictated Date/Time: 04/18/2017 5:57 PM
[2017-04-18 20:08] LABS: ALBUMIN 4.2 gm/dl (3.4-5.0); ALT/SGPT 22 U/L (12-78); AST/SGOT 10 U/L (15-37); BLOOD UREA NITROGEN 15 mg/dl (7-18); CALCIUM 9.5 mg/dl (8.5-10.1); CARBON DIOXIDE 31 mmol/L (21-32); CREATININE 0.73 mg/dl (0.60-1.20); GLUCOSE 85 mg/dl (70-99); POTASSIUM 3.7 mmol/L (3.5-5.1); SODIUM 140 mmol/L (136-145)
[2017-04-18 20:11] LABS: ALKALINE PHOSPHATASE 77 U/L (45-117); TOTAL PROTEIN 7.9 gm/dl (6.4-8.2)
== END | disposition home or self-care (01) ==
LOC: C.ULTR 17:10
PROVIDERS: ATTEND Physician Assistant Medical
DX: R10.811 Right upper quadrant abdominal tenderness (principal); M54.6 Pain in thoracic spine; K76.9 Liver disease, unspecified

== ENCOUNTER → 2017-11-04 | Outpatient (CLI) | payer BC ==
[~2017-11-04] MED LIST changes: +ERGO500037 PO; +ONDA4TAB10 SL; +RANI150T85 PO
--- NOTE | 2017-11-04 12:46 | DIAGNOSTIC IMAGING REPORT ---
LEFT UPPER QUADRANT ULTRASOUND CLINICAL HISTORY: R10.812 left upper quadrant abdominal pain COMPARISON STUDY: 04/18/2017 FINDINGS: The spleen appears sonographically normal. The pancreas appears sonographically normal. No abnormalities of the left lobe of the liver were visualized. There is no left-sided hydronephrosis. IMPRESSION: Normal left upper quadrant dominant ultrasound. Electronically signed by: Donn Sosa M.D. 11/04/2017 12:44 PM Dictated Date/Time: 11/04/2017 12:43 PM
== END | disposition home or self-care (01) ==
LOC: C.ULTRBC 12:16
PROVIDERS: ATTEND Nurse Practitioner
DX: R10.812 Left upper quadrant abdominal tenderness (principal); R53.83 Other fatigue

== ENCOUNTER → 2017-11-04 | Outpatient (CLI) | payer BC ==
--- NOTE | 2017-11-04 13:34 | DIAGNOSTIC IMAGING REPORT ---
CHEST 2 VIEWS ROUTINE CLINICAL HISTORY: FATIGUE COMPARISON STUDY: 09/27/2015 FINDINGS: The cardiac and mediastinal contours are normal. There is no evidence of focal pulmonary consolidation. There is no evidence of failure. No pleural effusions are visualized.[ There are postsurgical changes present within the cervical spine. IMPRESSION: No active disease in the chest. Electronically signed by: Donn Sosa M.D. 11/04/2017 1:32 PM Dictated Date/Time: 11/04/2017 1:10 PM
== END | disposition home or self-care (01) ==
LOC: C.RAD1850 12:59
PROVIDERS: ATTEND Nurse Practitioner
DX: R53.83 Other fatigue (principal)

== ENCOUNTER → 2017-11-19 | Day surgery (SDC) | payer BC ==
[2017-11-11 13:49] VITALS: Ht 170.2 cm; Wt 72.7 kg
[~2017-11-19] VITALS: Ht 170.2 cm; Wt 72.7 kg
[~2017-11-19] MED LIST changes: +ATROPINE SULFATE 0.1 MG/ML 5ML SYR IV PRN; +BUPIVACAINE 0.5 % 5 MG/1 ML PF 10ML VIAL ONE; +DEXAMETHASONE SOD INJ 4 MG/ML VIAL ONE; +EpHEDrine SULFATE INJ 50 MG/ML AMP IV PRN; +FENTANYL CITRATE INJ 50 MCG/1 ML 2 ML VIAL IV PRN; +FENTANYL CITRATE INJ 50 MCG/1 ML 2 ML VIAL ONE; +HYDROmorphone INJ 0.5 MG/0.5 ML SYR IV PRN; +LACTATED RINGER'S 1000ML 1,000 ML IV SCH; +LIDOCAINE HCL 1% 20 ML VIAL ONE; +LIDOCAINE HCL 2% 2 ML VIAL (20MG/ML) ONE; +METH-445 PO; -METH500T37 PO; +MIDAZOLAM HCL 1 MG/ML 2ML VIAL ONE; +ONDANSETRON INJ 2 MG/ML 2 ML VIAL IV PRN; +ONDANSETRON INJ 2 MG/ML 2 ML VIAL ONE; +PHENYLEPHRINE 100MCG/ML 5ML SYR IV PRN; +PROMETHAZINE HCL INJ 12.5 MG in SODIUM CHLORIDE 0.9% 50ML 50 ML IV PRN; +PROPOFOL IV EMULSION 10 MG/ML 20 ML VIAL ONE
--- NOTE | 2017-11-19 06:58 | History & Physical Bridge - [place] ---
H&P Re-Evaluation Bridge Note: I have examined the patient, reviewed the History & Physical and in the interval since the performance of the History & Physical I have noted the following changes of clinical significance: No changes noted
--- NOTE | 2017-11-19 07:33 | [facility] Post Operative Brief Note ---
Immediate Operative Summary Operative Date Nov 19, 2017. Pre-Operative Diagnosis Left Carpal Tunnel Syndrome Post-Operative Diagnosis same Procedure(s) Performed Left Carpal Tunnel Release Surgeon Dr. Mae Elmore Deckhand Engineer Surgeon(s) 0 Estimated Blood Loss 0 Findings Consistent with Post-Op Diagnosis Specimens none Anesthesia Type MAC
--- NOTE | 2017-11-19 07:37 | Discharge Instructions ---
Discharge Instructions Date of Service Nov 19, 2017. Admission Reason for Admission: Left Carpal Tunnel Syndrome Discharge Discharge Diagnosis / Problem: same Discharge Goals Goal(s): Improve function Activity Recommendations Activity Limitations: as noted below Lifting Limitations: no more than 5 pounds, until after follow-up appointment Exercise/Sports Limitations: until after follow-up appointment Shower/Bathe: keep incision dry home, rest, recover . Current Hospital Diet Patient's current hospital diet: Discharge Diet Recommended Diet: Regular Diet Procedures Procedures Performed: Left Carpal Tunnel Release Pending Studies Studies pending at discharge: no Medical Emergencies . Who to Call and When: Medical Emergencies: If at any time you feel your situation is an emergency, please call 911 immediately. . Non-Emergent Contact Non-Emergency issues call your: Primary Care Provider . "Provider Documentation" section prepared by Refugio Elmore. .
[2017-11-19 07:38] VITALS: TEMP 36
[2017-11-19 08:01] VITALS: BP 120/72; O2SAT 100
--- NOTE | 2017-11-19 08:05 | Anesthesia Progress Nt - [facility] ---
Anesthesia Post Op Note Date & Time Nov 19, 2017 at 08:05 Vital Signs Pain Intensity: 0 Vital Signs Past 12 Hours Date Time Temp Pulse Resp B/P (MAP) Pulse Ox O2 Delivery O2 Flow Rate FiO2 11/19/17 08:01 52 20 120/72 (88) 100 Room Air 11/19/17 07:38 36.0 76 18 101/59 (73) 100 Room Air 11/19/17 06:29 36.5 66 16 104/65 (78) 96 Room Air Notes Mental Status: alert / awake / arousable, participated in evaluation Pt Amnestic to Procedure: Yes Nausea / Vomiting: adequately controlled Pain: adequately controlled Airway Patency, RR, SpO2: stable & adequate BP & HR: stable & adequate Hydration State: stable & adequate Anesthetic Complications: no major complications apparent
--- NOTE | 2017-11-19 08:06 | OPERATIVE REPORT ---
DATE OF OPERATION: 11/19/2017 PREOPERATIVE DIAGNOSIS: Left carpal tunnel syndrome. POSTOPERATIVE DIAGNOSIS: Same. PROCEDURE: Left carpal tunnel release. ANESTHETIC: Monitored local. SURGEON: Refugio Elmore DO. ESTIMATED BLOOD LOSS: Zero. DESCRIPTION OF PROCEDURE: Patient was taken to the minor procedure room, prepped and draped sterile. I anesthetized the left carpal canal with the Xylocaine. We outlined a skin incision on the ulnar aspect of the long finger. Tourniquet applied. We made a skin incision, fascial incision, and dissected free the transverse carpal ligament proximal to the palmar crease. There was no injury. There was no bleeding. We irrigated and closed in layers. Sterile dressings applied. The patient then returned to recovery room satisfactory and stable. No complications. I attest to the content of the Intraoperative Record and any orders documented therein. Any exception s are noted below.
== END | disposition home or self-care (01) ==
LOC: X.SURG 06:16
PROVIDERS: ATTEND Orthopaedic Surgery Orthopaedic Surgery of the Spine
DX: G56.02 Carpal tunnel syndrome, left upper limb (principal); Z88.0 Allergy status to penicillin; Z88.1 Allergy status to other antibiotic agents; M06.9 Rheumatoid arthritis, unspecified; Z85.41 Personal history of malignant neoplasm of cervix uteri; F32.9 Major depressive disorder, single episode, unspecified; F17.200 Nicotine dependence, unspecified, uncomplicated; K21.9 Gastro-esophageal reflux disease without esophagitis